=== PATIENT | female | born 1940 | race African-American/Black ===

== ENCOUNTER 2017-04-09 17:46 | Emergency (ER) | payer MEDICARE, OTHER ==
[~2017-04-09] VITALS: Ht 175.3 cm; Wt 92.7 kg
[~2017-04-09 17:46] MED LIST: AMLO5TAB96 PO; BACL10TA PO; HYDR-3533 PO; HYDR12.56 PO; LISI-360 PO
[2017-04-09 18:16] VITALS: BP 164/94; PULSE 71; RESP 16; TEMP 101.2; O2SAT 97
[2017-04-09] MEDS ORDERED: AMLO5 PO (18:24)
[2017-04-09] MEDS ORDERED: AMLO5TAB2 PO (18:24)
[2017-04-09] MEDS ORDERED: HYDR12.57 PO (18:24)
[2017-04-09] MEDS ORDERED: ACETAMINOPHEN 500 MG CPLT PO ONE (19:45)
--- NOTE | 2017-04-09 20:48 | RADRPT ---
EXAM DATE/TIME: 04/09/2017 20:32 [place] COMPARISON: No previous studies available for comparison. INDICATIONS : Flu like symptoms. MEDICAL HISTORY : None. SURGICAL HISTORY : None. ENCOUNTER: Initial ACUITY: 3 days PAIN SCORE: 0/10 LOCATION: Bilateral chest FINDINGS: Underinflated AP view of the chest demonstrates cardiac silhouette size at the upper limits for deanne l with tortuous descending thoracic aorta. Lungs are underinflated. No effusion, consolidation, or pn eumothorax is identified. The bones and soft tissues demonstrate no acute finding. CONCLUSION: No acute cardiopulmonary abnormality is identified. Elia Sanabria MD on April 09, 2017 at 20:42 Board Certified Radiologist. This report was verified electronically.
[2017-04-09] MEDS ORDERED: AZIT250T3 PO (21:03)
[2017-04-09] MEDS ORDERED: BENZ100 PO (21:03)
[2017-04-09] MEDS ORDERED: OSEL75 PO (21:03)
--- NOTE | 2017-04-09 21:03 | PD ---
HPI Chief Complaint: Cold / Flu Symptoms Time Seen by Provider: 19:21 Travel History International Travel<30 days: No Contact w/Intl Traveler<30days: No Traveled to known affect area: No History of Present Illness HPI This is a 76-year-old female here with flulike illness 2 days. She reports cough, body aches, fever. Symptoms severity is moderate. No aggravating or alleviating factors. No known sick contacts or foreign travel. She denies chest pain or shortness of breath. No urinary symptoms. No abdominal pain. PFSH Past Medical History Hx Anticoagulant Therapy: Yes (asa 81mg) Arthritis: Yes Asthma: No Autoimmune Disease: No Anxiety: No Depression: No Heart Rhythm Problems: No Cancer: No Cardiac Catheterization: Yes High Cholesterol: No Chest Pain: No Congestive Heart Failure: No COPD: No Cerebrovascular Accident: No Diabetes: No Diminished Hearing: No Endocrine: No Gastrointestinal Disorders: Yes (ULCERS) GERD: Yes Glaucoma: No Genitourinary: No Headaches: No Hepatitis: No Hiatal Hernia: Yes (HX) Hypertension: Yes Immune Disorder: No Implanted Vascular Access Dvce: Yes Kidney Stones: No Musculoskeletal: Yes (ARTHRITIS) Neurologic: No Psychiatric: No Reproductive: No Respiratory: No Immunizations Current: No Migraines: No Myocardial Infarction: No Renal Failure: No Seizures: No Sickle Cell Disease: No Sleep Apnea: No Thyroid Disease: No Ulcer: Yes Tetanus Vaccination: > 5 Years Influenza Vaccination: No ?: Not Menopausal: Yes Past Surgical History Abdominal Surgery: No AICD: No Appendectomy: Yes Arteriovenous Shunt: No Body Medical Devices: RODS AND PINS BACK Cardiac Surgery: No Cholecystectomy: No Ear Surgery: No Endocrine Surgery: No Eye Surgery: No Genitourinary Surgery: No Gynecologic Surgery: Yes (HYSTERECTOMY WITH APPENDECTOMY) Hysterectomy: Yes Insulin Pump: No Joint Replacement: Yes (BILAT HIPS) Neurologic Surgery: Yes (LUMBAR LAMINECTOMY ; LUMBAR SPINAL FUSION ; REVISION LAMINECTOMY) Oral Surgery: No Pacemaker: No Thoracic Surgery: No Other Surgery: Yes Social History Alcohol Use: No Tobacco Use: No Substance Use: No Allergies-Medications (Allergen,Severity, Reaction): Coded Allergies: codeine (Unverified Allergy, Severe, RINGING IN EARS, 04/09/17) Reported Meds & Prescriptions Reported Meds & Active Scripts Active Tessalon Perles (Benzonatate) 100 Mg Cap 200 Mg PO TID PRN Tamiflu (Oseltamivir Phosphate) 75 Mg Cap 75 Mg PO BID 5 Days Azithromycin 250 Mg Tab 250 Mg PO DIRECTED Take 2 tabs (500 mg) on day 1 then 1 tab daily x 4 days. Reported Norvasc (Amlodipine Besylate) 5 Mg Tab 5 Mg PO DAILY Hydrochlorothiazide 12.5 Mg Cap 12.5 Mg PO DAILY Amlodipine (Amlodipine Besylate) 5 Mg Tab 5 Mg PO DAILY Review of Systems Except as stated in HPI: all other systems reviewed are Neg General / Constitutional: Positive: Fever HENT: Positive: Sore Throat, Congestion Respiratory: Positive: Cough Gastrointestinal: No: Abdominal Pain Genitourinary: No: Dysuria Musculoskeletal: Positive: Myalgias Skin: No Rash Physical Exam Narrative GENERAL: Alert 76-year-old female. Nontoxic appearing. SKIN: Warm and dry. HEAD: Normocephalic. EYES: No injection or drainage. NECK: Supple, trachea midline. No JVD or lymphadenopathy. No meningismus CARDIOVASCULAR: Regular rate and rhythm without murmurs, gallops, or rubs. RESPIRATORY: Breath sounds equal bilaterally. No accessory muscle use. Frequent rhonchorous cough. GASTROINTESTINAL: Abdomen soft, non-tender, nondistended. No rebound or guarding. MUSCULOSKELETAL: No cyanosis, or edema. BACK: Nontender without obvious deformity. No CVA tenderness. Data Data Last Documented VS Vital Signs Date Time Temp Pulse Resp B/P (MAP) Pulse Ox O2 Delivery O2 Flow Rate FiO2 04/09/17 18:16 101.2 71 16 164/94 (117) 97 Orders Orders Chest, Single Ap (04/09/17 ) Influenzae A/B Antigen (04/09/17 19:32) Acetaminophen (Tylenol) (04/09/17 19:45) MDM Medical Decision Making Medical Screen Exam Complete: Yes Emergency Medical Condition: Yes Differential Diagnosis Influenza, pneumonia, bronchitis Narrative Course This is a 76-year-old female here with flulike illness. She is nontoxic- appearing. Despite having a fever she appears well. She has a frequent rhonchorous cough and clear nasal discharge. Influenza screening is negative. Chest x-ray shows no abnormality. On reassessment temperature is 99.7, she reports symptom improvement and is requesting discharge. I suspect this is influenza versus bronchial pneumonia. Given her age she'll be treated for both. Diagnosis Primary Impression: Influenza-like illness Additional Impression: Bronchitis Referrals: Primary Care Physician Additional Instructions: Continue with Tylenol for fever and pain. Rest and stay well-hydrated. Follow-up with her primary doctor. Scripts Benzonatate (Tessalon Perles) 100 Mg Cap 200 MG PO TID Y for COUGH, #14 CAP 0 Refills Prov: Zamzam Figueroa 04/09/17 Oseltamivir (Tamiflu) 75 Mg Cap 75 MG PO BID for Mgmt Viral Infection for 5 Days, #10 CAP 0 Refills Prov: Zamzam Figueroa 04/09/17 Azithromycin (Azithromycin) 250 Mg Tab 250 MG PO DIRECTED for Infection, #6 TAB 0 Refills Take 2 tabs (500 mg) on day 1 then 1 tab daily x 4 days. Prov: Zamzam Figueroa 04/09/17 Disposition: 01 DISCHARGE HOME Condition: Stable Zamzam Figueroa Apr 09, 2017 21:03
[2017-04-09 21:09] VITALS: TEMP 99.7
== END 2017-04-09 21:10 | disposition home or self-care (01) ==
LOC: PHEFT 17:46
DX: J40 Bronchitis, not specified as acute or chronic (principal); R50.9 Fever, unspecified; K21.9 Gastro-esophageal reflux disease without esophagitis; I10 Essential (primary) hypertension; M19.90 Unspecified osteoarthritis, unspecified site; Z88.5 Allergy status to narcotic agent; Z79.82 Long term (current) use of aspirin
CPT/HCPCS: 71045; 87804; 99284